=== PATIENT | female | born 1990 | race American Indian/Alaskan Native ===

== ENCOUNTER 2020-07-01 02:31 | Inpatient (IN) | payer MEDICAID ==
--- NOTE | 2020-07-01 02:39 | Emergency Department Report ---
HPI - General Time Seen by Provider: 07/01/20 02:35 - HPI HPI: Charge nurse triage The patient is a 30-year-old female present with a chief complaint of aphasia. Per EMS the patient's boyfriend noticed a change in the patient's behavior at approximately 00:30. The patient attempts to speak but no words come out. Per EMS some left-sided weakness was noted. ED Past Medical Hx - Past Medical History Hx Sickle Cell Disease: Yes - Family History Family history: no significant - Social History Smoking Status: Unknown if ever smoked Substance Use Type: None ED Review of Systems ROS: Stated complaint: CODE STROKE Other details as noted in HPI Comment: Unobtainable due to pts medical conditions Physical Exam - Physical Exam Physical Exam: GENERAL: The patient is well-developed well-nourished female lying on stretcher occasionally making eye contact and attempting to speak but no words, now. [] HEENT: Normocephalic. Atraumatic. Extraocular motions are intact. Patient has moist mucous membranes. NECK: Supple. Trachea midline CHEST/LUNGS: There is no respiratory distress noted. HEART/CARDIOVASCULAR: Regular. There is no tachycardia. ABDOMEN: There is no abdominal distention. SKIN: There is no rash. There is no edema. There is no diaphoresis. NEURO: The patient is awake and alert. The patient is cooperative. Cranial nerves II through XII grossly intact however patient will not speak. The patient forms her mouth to make words but does not not speak. When asked to move her hands and feet the patient makes minimal movements MUSCULOSKELETAL: There is no evidence of acute injury. ED Course - Consultations Consultation #1: 07/01/20 03:11 Case discussed with telemetry neurologist- no TPA. Admit for work-up ED Medical Decision Making - Lab Data Result diagrams: 07/01/20 03:00 07/01/20 03:00 Laboratory Tests 07/01/20 07/01/20 07/01/20 03:00 03:00 03:00 WBC 11.7 H RBC 4.77 Hgb 12.7 Hct 38.6 MCV 81 MCH 27 L MCHC 33 RDW 13.8 Plt Count 254 Lymph % (Auto) 23.7 [place] % (Auto) 5.5 Eos % (Auto) 0.5 Baso % (Auto) 0.8 Lymph # (Auto) 2.8 [place] # (Auto) 0.6 Eos # (Auto) 0.1 Baso # (Auto) 0.1 Seg Neutrophils % 69.5 Seg Neutrophils # 8.2 H PT 14.1 INR 1.07 APTT 33.3 Thrombin Time 17.2 Sodium 140 Potassium 4.2 Chloride 103.5 Carbon Dioxide 23 Anion Gap 18 BUN 12 Creatinine 1.0 Estimated GFR > 60 BUN/Creatinine Ratio 12 Glucose 102 H Calcium 8.6 Plasma/Serum Alcohol 07/01/20 03:00 WBC RBC Hgb Hct MCV MCH MCHC RDW Plt Count Lymph % (Auto) [place] % (Auto) Eos % (Auto) Baso % (Auto) Lymph # (Auto) [place] # (Auto) Eos # (Auto) Baso # (Auto) Seg Neutrophils % Seg Neutrophils # PT INR APTT Thrombin Time Sodium Potassium Chloride Carbon Dioxide Anion Gap BUN Creatinine Estimated GFR BUN/Creatinine Ratio Glucose Calcium Plasma/Serum Alcohol < 0.01 - EKG Data -: EKG Interpreted by Sc EKG shows normal: sinus rhythm Rate: normal - EKG Data When compared to previous EKG there are: previous EKG unavailable Interpretation: other (No ischemic changes seen) - Radiology Data Radiology results: report reviewed (CT head), image reviewed (CT head) [facility] [address] [place] [address] Cat Scan Report Signed Patient: CHARLETTE GREEN MR#: [id number] : 1990 Acct:[id number] Age/Sex: 30 / F ADM Date: 07/01/20 Loc: ED Attending Dr: Ordering Physician: BRIDGER HODGE MD Date of Service: 07/01/20 Procedure(s): CT head/brain wo con Accession Number(s): [id number] cc: BRIDGER HODGE MD CT head/brain wo con INDICATION / CLINICAL INFORMATION: 30 years Female; Aphasic. TECHNIQUE: Routine CT head without contrast. All CT scans at this location are performed using CT dose reduction for ALARA by means of automated exposure control. Study limited by patient zohra devi. COMPARISON: None. FINDINGS: BRAIN / INTRACRANIAL CONTENTS: No acute hemorrhage, mass effect, midline shift, hydrocephalus, or acute, large territorial infarct. No chronic infarct or atrophy appreciated. No significant white matter abnormality. CRANIOCERVICAL JUNCTION: No significant abnormality. ORBITS: No significant abnormality of visualized orbits. SINUSES / MASTOIDS: No significant abnormality in the visualized paranasal sinuses or mastoid air cells. ADDITIONAL FINDINGS: None. IMPRESSION: 1. No focal mass, hemorrhage, hydrocephalus, or acute, large territorial infarct. Follow-up with diffusion imaging by MRI, as clinically warranted. CODE STROKE: Exam Completed (WOOD GRINDER/CDT): 07/01/2020 1:50 AM Exam Reviewed (WOOD GRINDER/CDT): 2:07 AM Time of Communication (WOOD GRINDER/CDT): 2:09 AM Licensed Practitioner Receiving Report: Dr. Hodge Signer Name: Rajendra Soto MD, III Signed: 07/01/2020 3:10 AM Workstation Name: [id number] Transcribed By: HR Dictated By: Rajendra Soto MD Electronically Authenticated By: Rajendra Soto MD Signed Date/Time: 07/01/20309 DD/ 5 TD/TT: - Differential Diagnosis CVA, complex migraine, malingering Critical care attestation.: If time is entered above; I have spent that time in minutes in the direct care of this critically ill patient, excluding procedure time. ED Disposition Clinical Impression: Altered mental status Disposition: DC-09 OP ADMIT IP TO THIS HOSP Is pt being admited?: Yes Does the pt Need Aspirin: Yes Condition: Fair Referrals: PRIMARY CARE, [Primary Care Provider] - 3-5 Days Time of Disposition: 05:07 (Hospitalist notified Dr Jimenez))
[2020-07-01] MEDS ORDERED: BUTALB/ACETAMINOPHEN/CAFFEINE TAB PO ONE (03:11)
[2020-07-01] MEDS ORDERED: ASPIRIN 325 MG TAB PO ONE (03:11)
[2020-07-01 03:14] LABS: Basophils # (Auto) 0.1 K/mm3 (0.0-0.1); Basophils % (Auto) 0.8 % (0.0-1.8); Eosinophils # (Auto) 0.1 K/mm3 (0.0-0.4); Eosinophils % (Auto) 0.5 % (0.0-4.3); Hematocrit 38.6 % (30.3-42.9); Hemoglobin 12.7 gm/dl (10.1-14.3); Lymphocytes # (Auto) 2.8 K/mm3 (1.2-5.4); Lymphocytes % (Auto) 23.7 % (13.4-35.0); Mean Corpuscular HGB Conc 33 % (30-34); Mean Corpuscular Volume 81 fl (79-97); Monocytes # (Auto) 0.6 K/mm3 (0.0-0.8); Monocytes % (Auto) 5.5 % (0.0-7.3); Platelet Count 254 K/mm3 (140-440); Red Blood Count 4.77 M/mm3 (3.65-5.03); Red Cell Distribution Width 13.8 % (13.2-15.2)
--- NOTE | 2020-07-01 03:14 | Cat Scan Report ---
CT head/brain wo con INDICATION / CLINICAL INFORMATION: 30 years Female; Aphasic. TECHNIQUE: Routine CT head without contrast. All CT scans at this location are performed using CT dos e reduction for ALARA by means of automated exposure control. Study limited by patient positioning. COMPARISON: None. FINDINGS: BRAIN / INTRACRANIAL CONTENTS: No acute hemorrhage, mass effect, midline shift, hydrocephalus, or acu te, large territorial infarct. No chronic infarct or atrophy appreciated. No significant white matter abnormality. CRANIOCERVICAL JUNCTION: No significant abnormality. ORBITS: No significant abnormality of visualized orbits. SINUSES / MASTOIDS: No significant abnormality in the visualized paranasal sinuses or mastoid air syl ls. ADDITIONAL FINDINGS: None. IMPRESSION: 1. No focal mass, hemorrhage, hydrocephalus, or acute, large territorial infarct. Follow-up with diff usion imaging by MRI, as clinically warranted. CODE STROKE: Exam Completed (INSTRUMENTAL TEACHER/CDT): 07/01/2020 1:50 AM Exam Reviewed (INSTRUMENTAL TEACHER/CDT): 2:07 AM Time of Communication (INSTRUMENTAL TEACHER/CDT): 2:09 AM Licensed Practitioner Receiving Report: Dr. Sandoval Signer Name: Rajendra Soto MD, III Signed: 07/01/2020 3:10 AM Workstation Name: [id number]
[2020-07-01 03:21] LABS: BUN/Creatinine Ratio 12; Blood Urea Nitrogen 12 mg/dL (7-17); Calcium 8.6 mg/dL (8.4-10.2); Hemolysis Index 29
--- NOTE | 2020-07-01 03:22 | Emergency Department Report ---
ED Neuro Deficit HPI - General Chief Complaint: Altered Mental Status Stated Complaint: CODE STROKE Time Seen by Provider: 07/01/20 02:35 Source: patient, family, EMS - History of Present Illness Initial Comments: [facility] TeleStroke Metrics: LKW: 2200 Door Time: 0231 [employer] Contacted: 223 [facility] at Bedside: 230 NIHSS: 0252 Decision on Alteplase: Not to give as her last known well time is greater than 4.5 hours prior to her presentation. Interventional Candidate: Likely not a candidate as her symptoms are not consistent with a large vessel proximal occlusion. CTA head and neck are pending. Chief Complaint: Altered mental status HPI: Asked to see this patient in emergent telemedicine consultation utilizing interactive audio and video technologies. Consultation was performed with assistance of ancillary / medical staff at bedside. Verbal consent to perform the examination with telemedicine was obtained. Patient agreed to proceed with the consultation for acute stroke protocol. 30-year-old right-handed -[place] female who comes to the emergency room by EMS as a stroke alert for possible left-sided weakness, confusion, and inability to speak. Patient does not take any blood thinners or aspirin. She does not take any control pills. She has a history of sickle cell trait and migraine headaches. I eventually was able to speak with the patient's boyfriend over the phone. According to the boyfriend, the last time he saw the patient well was around 10 PM when he left their home. He then came back around 1 AM and found her with shortness of breath and she was pointing to her chest. She was struggling to talk and was generally weak. He ultimately called EMS. They reported left- sided weakness and patient not being able to talk. Her blood pressure was 128/68 and blood sugar was 113. Upon my evaluation, the patient was generally weak. She was actually able to follow commands and appeared to attempt to talk but was unable to verbalize any words. She was able to write her boyfriend's phone number down on a piece of paper, and that was how I was able to contact him. Head CT showed no acute findings. Patient was complaining of a headache as well. PMH: Sickle cell trait and migraine headaches SOC: Negative x2. Patient drinks occasional alcohol. She lives with her boyfriend of 15 years. FMH: Positive for stroke. ROS: 13 point review systems were reviewed with the patient, and are all negative with the exception of the aforementioned in the history of present illness. VS: Blood pressure 155/84, pulse 83, respiration 13 Exam: Patient is in no apparent distress. Patient appears as stated age. No obvious acute respiratory or cardiac distress. Patient is well groomed and well-nourished. 1a- LOC: Keenly responsive - 0 1b- LOC questions: Answers neither questions correctly - 2 1c- LOC commands- Performs both tasks correctly- 0 2- Gaze: Normal; no gaze paresis or gaze deviation - 0 3- Visual Marques: normal, no Visual field deficit - 0 4- Facial movements: no facial palsy - 0 5- Upper limb motor bilateral arm drifts - 2 6- Lower limb motor bilateral leg drifts - 2 7- Limb Coordination: absent ataxia - 0 8- Sensory: no sensory loss - 0 9- Language - Severe aphasia - 2 10- Speech - Severe dysarthria - 2 11- Neglect / Extinction - none found - 0 NIHSS score: 10 Diagnostic Data: CT head showed no acute intracranial hemorrhage, mass, or large territory stroke Blood glucose 113 WBC 11.7, hemoglobin 12.7, platelets 254 Medical Data Reviewed: 1.Data?reviewed include clinical labs, radiology,?and medical tests; 2.Tests?results discussed w/performing or interpreting physician; 3.Obtaining/reviewing old medical records; 4.Obtaining?case history from another source; 5.Independent?review of image, tracing, or specimen. Medical Decision Making: - Extensive number of diagnosis or management options are considered below. - Extensive amount of complex data reviewed. - High risk of complication and/or morbidity or mortality are associated with differential diagnostic considerations below. - There may be?uncertain?outcome and increased probability of prolonged functional impairment or high probability of severe prolonged functional impairment associated with some of these differential diagnosis. Differential Diagnosis for Stroke: 1.?Cardioembolic?stroke 2. Small vessel disease/lacune 3. Thromboembolic, ulbgmw-kh-[id number] mechanism 4.?Hypercoagulable?state-related infarct 5. Transient ischemic attack 6. Thrombotic mechanism, large artery disease Assessment: 1. Altered mental status 2. Sickle cell trait 3. Migraine headaches 4. Possible chest pain Recommendations: We will go ahead and check a CTA head and neck now to better evaluate her in tracranial and extracranial blood vessels Patient can be admitted to the hospital for further work-up of her symptoms Start the patient on full dose aspirin Allow permissive hypertension Consult inpatient neurology team to assist with evaluation and management Chest pain work-up per primary team Metabolic and infectious work-up per primary team Check MRI brain without contrast to rule out any acute intracranial process Check echocardiogram to gauge her cardiac function Maintain the patient on telemetry to look for paroxysmal atrial fibrillation To consider an EEG to rule out subclinical seizures if her MRI brain is negative Check hemoglobin A1c, lipid panel, and urine drug screen Consult PT, OT, and ST Continue supportive care Plan of care was cussed with the patient and her boyfriend Thank you for allowing [facility] to participate in the care of your patient. Please call me, Dr. Garcia, with any questions at [phone]. Case discussed with the ER staff and Dr. Sandoval. Critical Care notation: I was called to see this critical patient emergently. I personally evaluated t his critical patient for acute stroke evaluation, and determining their eligibility for IV Alteplase and interventional therapies. I have spent approximately 30 minutes with the patient, including time at bedside, time discussing the case with other physicians, reviewing plan of care, and time inde pendently reviewing the records and scans. ED Review of Systems ROS: Stated complaint: CODE STROKE Other details as noted in HPI ED Past Medical Hx - Past Medical History Hx Sickle Cell Disease: Yes - Social History Smoking Status: Unknown if ever smoked ED Neuro Physical Exam - General Suspected Stroke: No - Lab Data Result diagrams: 07/01/20 03:00 Lab Results 07/01/20 Range/Units 03:00 WBC 11.7 H (4.5-11.0) K/mm3 RBC 4.77 (3.65-5.03) M/mm3 Hgb 12.7 (10.1-14.3) gm/dl Hct 38.6 (30.3-42.9) % MCV 81 (79-97) fl MCH 27 L (28-32) pg MCHC 33 (30-34) % RDW 13.8 (13.2-15.2) % Plt Count 254 (140-440) K/mm3 Lymph % (Auto) 23.7 (13.4-35.0) % [place] % (Auto) 5.5 (0.0-7.3) % Eos % (Auto) 0.5 (0.0-4.3) % Baso % (Auto) 0.8 (0.0-1.8) % Lymph # (Auto) 2.8 (1.2-5.4) K/mm3 [place] # (Auto) 0.6 (0.0-0.8) K/mm3 Eos # (Auto) 0.1 (0.0-0.4) K/mm3 Baso # (Auto) 0.1 (0.0-0.1) K/mm3 Seg Neutrophils % 69.5 (40.0-70.0) % Seg Neutrophils # 8.2 H (1.8-7.7) K/mm3 Critical care attestation.: If time is entered above; I have spent that time in minutes in the direct care of this critically ill patient, excluding procedure time. ED Disposition Clinical Impression: Altered mental status Disposition: DC-09 OP ADMIT IP TO THIS HOSP Is pt being admited?: Yes Does the pt Need Aspirin: Yes Condition: Stable Referrals: PRIMARY CARE, [Primary Care Provider] - 3-5 Days
[2020-07-01 03:25] LABS: INR 1.07 (0.87-1.13)
[2020-07-01 03:26] LABS: Partial Thromboplastin Time 33.3 Sec. (24.2-36.6); Thrombin Time 17.2 Sec. (15.1-19.6)
[2020-07-01] MEDS ORDERED: PROMETHAZINE 25 MG RECT SUPP PR PRN (05:34)
[2020-07-01] MEDS ORDERED: ONDANSETRON 4 MG/2 ML INJ IV PRN ×2 (05:34)
[2020-07-01] MEDS ORDERED: METOCLOPRAMIDE 10 MG TAB PO PRN (05:34)
[2020-07-01] MEDS ORDERED: MAGNESIUM HYDROXIDE (MOM) ORAL LIQD UDC PO PRN ×2 (05:34)
[2020-07-01] MEDS ORDERED: ACETAMINOPHEN 325 MG TAB PO PRN ×2 (05:34)
[2020-07-01] MEDS ORDERED: MORPHINE 2 MG/1 ML INJ IV PRN ×2 (05:34→05:46)
--- NOTE | 2020-07-01 05:38 | Cat Scan Report ---
CT angio head INDICATION / CLINICAL INFORMATION: 30 years Female; AMS. TECHNIQUE: Thin cut axial images obtained through the head during IV bolus contrast administration. S agittal, coronal, and 3 plane MIP reconstructions performed by the technologist. NASCET type criteria used evaluate stenoses. Automated exposure control utilized for radiation reduction purposes. Study suboptimal secondary to bolus timing, low injection rate, or perhaps low cardiac output. COMPARISON: None available. FINDINGS: INTERNAL CAROTID ARTERIES: No significant narrowing appreciated. VERTEBROBASILAR SYSTEM: No significant narrowing appreciated. DISTAL BRANCHES: Distal branches of the anterior, middle, and posterior cerebral arteries are fairly symmetric in appearance and number. Note, the A1 segment on the left may be hypoplastic, when compared with the right. This finding most likely is on a congenital basis. There may be smooth like narrowing of the distal A1 segment on the l eft, however. Areas of smooth like narrowing in the right MCA territories cannot be excluded-these findings might r aise the possibility of vasculitis/arteritis. There may be mild, smooth like narrowing in the P1 segment on the right. ANEURYSM: None identified. ADDITIONAL FINDINGS: Remainder of the surrounding soft tissues are grossly normal. IMPRESSION: 1. Study is suboptimal, as described above. No dominant stenosis appreciated on this CTA of the head. As always, this constellation of exams does not exclude ischemia. Diffusion imaging by MRI may be of benefit. 2. Areas of mild, smooth like narrowing as described above - arteritis/vasculitis might be considerat ion. Signer Name: Rajendra Soto MD, III Signed: 07/01/2020 5:33 AM Workstation Name: [id number]
--- NOTE | 2020-07-01 06:02 | History and Physical Report ---
History of Present Illness Date of examination: 07/01/20 Date of admission: 07/01/20 05:08 Chief complaint: Aphasia Left-sided weakness History of present illness: 30-year-old -[place] female with no significant past medical history except sickle cell trait presenting to the emergency room today via EMS with changes in mental status for about 30 minutes. Patient was said to be aphasic and had some left-sided weakness which was noticed by boyfriend. Upon arrival in the emergency room patient became more alert, was able to have a conversation. She cannot recall events prior to arrival in the emergency room. She denies any fever or chills, no chest pain or shortness of breath, no nausea vomiting, no diarrhea, no abdominal pain, no hematuria or dysuria. Patient indicates she has had some headache but denies any dizziness. She denies any sick contacts and no recent travel, denies any contact with anyone with COVID- 19. Work-up in the emergency room so far including CT of the head, CT angiogram of the head and neck has been unremarkable. Patient was seen by the teleneurologist and she was deemed to have had possible conversion disorder or complex migraine. However patient is being worked up for possible CVA. Past History Past Medical History: other (Sickle cell trait) Past Surgical History: No surgical history Social history: no significant social history Family history: diabetes (Grandmother), other (Brother and son with history of asthma) Medications and Allergies Allergies Allergy/AdvReac Type Severity Reaction Status Date / Time No Known Allergies Allergy Unverified 07/01/20 03:39 Active Meds: Active Medications Acetaminophen (Tylenol) 650 mg PO Q4H PRN PRN Reason: Pain MILD(1-3)/Fever >100.5/VARELA Acetaminophen (Tylenol) 650 mg PO Q4H PRN PRN Reason: Pain, Mild (1-3) Aspirin (Aspirin) 325 mg PO QDAY MATHEUS Atorvastatin Calcium (Lipitor) 40 mg PO QHS MATHEUS Bisacodyl (Dulcolax) 10 mg [place] QDAY PRN PRN Reason: Constipation Magnesium Hydroxide (Milk Of Magnesia) 30 ml PO Q4H PRN PRN Reason: Constipation Magnesium Hydroxide (Milk Of Magnesia) 30 ml PO Q4H PRN PRN Reason: Constipation Metoclopramide HCl (Reglan) 10 mg PO Q6H PRN PRN Reason: Nausea And Vomiting Morphine Sulfate (Morphine) 2 mg IV Q4H PRN PRN Reason: Pain, Moderate (4-6) Morphine Sulfate (Morphine) 2 mg IV Q4H PRN PRN Reason: Pain, Moderate (4-6) Ondansetron HCl (Zofran) 4 mg IV Q8H PRN PRN Reason: Nausea And Vomiting Ondansetron HCl (Zofran) 4 mg IV Q8H PRN PRN Reason: Nausea And Vomiting Promethazine HCl (Phenergan) 25 mg [place] Q6H PRN PRN Reason: Nausea And Vomiting Sodium Chloride (Sodium Chloride Flush Syringe 10 Ml) 10 ml IV BID MATHEUS Sodium Chloride (Sodium Chloride Flush Syringe 10 Ml) 10 ml IV PRN PRN PRN Reason: LINE FLUSH Sodium Chloride (Sodium Chloride Flush Syringe 10 Ml) 10 ml INJ PRN PRN PRN Reason: LINE FLUSH Review of Systems Constitutional: no fever, no chills Ears, nose, mouth and throat: no nasal congestion, no sore throat Cardiovascular: no chest pain, no palpitations Respiratory: no cough, no shortness of breath Gastrointestinal: no abdominal pain, no nausea, no vomiting Genitourinary Female: no pelvic pain, no flank pain, no dysuria, no hematuria Musculoskeletal: no neck pain, no low back pain Integumentary: no rash, no pruritis Neurological: weakness (Left-sided), aphasia, no headaches, no confusion Exam - Constitutional Vitals: Temp Pulse Resp BP Pulse Ox 98.1 F 85 18 121/67 99 07/01/20 03:40 07/01/20 04:30 07/01/20 05:20 07/01/20 05:45 07/01/20 05:45 General appearance: Present: no acute distress, well-nourished, obese - EENT Eyes: Present: PERRL, EOM intact ENT: hearing intact, clear oral mucosa, dentition normal - Neck Neck: Present: supple, normal ROM - Respiratory Respiratory effort: normal Respiratory: bilateral: CTA - Cardiovascular Rhythm: regular Heart Sounds: Present: S1 & S2. Absent: gallop, systolic murmur, diastolic murmur, rub - Extremities Extremities: no ischemia, pulses intact, pulses symmetrical, No edema, Full ROM Peripheral Pulses: within normal limits - Abdominal General gastrointestinal: Present: soft, non-tender, non-distended, normal bowel sounds - Integumentary Integumentary: Present: clear, warm, dry - Musculoskeletal Musculoskeletal: strength equal bilaterally - Psychiatric Psychiatric: appropriate mood/affect, intact judgment & insight, memory intact, cooperative - Neurologic Neurologic: CNII-XII intact, no focal deficits, moves all extremities Results - Labs CBC & Chem 7: 07/01/20 03:00 07/01/20 03:00 Labs: Abnormal lab results 07/01/20 07/01/20 Range/Units 03:00 03:00 WBC 11.7 H (4.5-11.0) K/mm3 MCH 27 L (28-32) pg Seg Neutrophils # 8.2 H (1.8-7.7) K/mm3 Glucose 102 H (65-100) mg/dL Assessment and Plan - Patient Problems (1) Aphasia Current Visit: Yes Status: Acute Plan to address problem: Etiology is unclear. Patient is being worked up for possible CVA. She has been started on daily aspirin and statin. We will place a consult to neurology for evaluation and recommendation. We will also place a consult to speech therapy. (2) Altered mental status Current Visit: Yes Status: Acute Plan to address problem: Patient back to her baseline. Etiology of the changes in mental status unknown. We await further work-up for CVA and recommendation from neurology. (3) DVT prophylaxis Current Visit: Yes Status: Acute Plan to address problem: Patient placed on subcutaneous Lovenox. (4) Full code status Current Visit: Yes Status: Acute
--- NOTE | 2020-07-01 06:07 | Cat Scan Report ---
CT angio neck INDICATION / CLINICAL INFORMATION: 30 years Female; AMS. TECHNIQUE: Thin cut axial images obtained through the head during IV bolus contrast administration. S agittal, coronal, and 3 plane MIP reconstructions performed by the technologist. NASCET type criteria used evaluate stenoses. All CT scans at this location are performed using CT dose reduction for ALAR A by means of automated exposure control. There is decreased ecfzih-zy-pldfp ratio, which may be rela prabhakar to patient body habitus or perhaps suboptimal bolus timing. COMPARISON: None available. FINDINGS: ARCH: Bovine arch configuration noted. CAROTID ARTERIES: The visualized common and internal carotid arteries are widely patent. VERTEBRAL ARTERIES: Codominant vertebral system seen. No dominant stenosis appreciated. Its difficult to evaluate for small areas of stenosis, particularly proximally. ADDITIONAL FINDINGS: Wallace tonsils are prominent, nearly touching in midline. IMPRESSION: No definitive stenosis appreciated on this limited CTA of the neck. Signer Name: Rajendra Soto MD, III Signed: 07/01/2020 6:03 AM Workstation Name: [id number]
--- NOTE | 2020-07-01 11:19 | Event Note ---
<WENCESLAO FRITZ - Last Filed: 07/01/20 15:42> Date: 07/01/20 This is a 30-year-old Female who came to [facility] with her boyfriend. She has past medical history except sickle cell trait. She to ED with AMS and was said to be aphasic and with some left-sided weakness which was noticed by boyfriend. patient became more alert and able to have a conversation in ED. per ED note- patient denies any fever or chills, no chest pain or shortness of breath, no nausea vomiting,but reported headache but denies any dizziness. patient seen at bedside. She is awake -alert and oriented times 3. voiced clear and no sided weakness noted on assessment. Patient said she can't remember coming to the hospital. She denies hx of seizures. She said her mom and nephew have seizure disorder. Tele nuero was consulted-reviewed recommendation CT of the head, CTA of the head and neck done-negative for acute finding Per tele nuero reces-start full dose aspirin, check MRI of the brain, ECHO, EEG to rule out subclinical seizures if her MRI brain is negative hemoglobin A1c, lipid panel, and urine drug screen ordered Consult PT, OT, and ST consulted <MARQUITA SMITH - Last Filed: 07/01/20 18:57> I saw and evaluated the patient. I agree with the findings and the plan of care as documented in the Nurse Practitioner's~note.
[2020-07-01] MEDS: ASPIRIN 325 MG TAB PO SCH (11:52)
[2020-07-01 14:14] LABS: Chol/HDL Ratio 2.41 %
[2020-07-01] MEDS ORDERED: ENOXAPARIN 40 MG/0.4 ML INJ SUB-Q SCH (22:00)
[2020-07-02 06:54] LABS: Basophils % (Auto) 0.2 % (0.0-1.8); Eosinophils # (Auto) 0.1 K/mm3 (0.0-0.4); Eosinophils % (Auto) 1.1 % (0.0-4.3); Hematocrit 34.4 % (30.3-42.9); Hemoglobin 11.6 gm/dl (10.1-14.3); Lymphocytes # (Auto) 1.9 K/mm3 (1.2-5.4); Lymphocytes % (Auto) 26.6 % (13.4-35.0); Mean Corpuscular HGB Conc 34 % (30-34); Mean Corpuscular Volume 83 fl (79-97); Monocytes # (Auto) 0.6 K/mm3 (0.0-0.8); Monocytes % (Auto) 8.8 % (0.0-7.3); Platelet Count 221 K/mm3 (140-440); Red Blood Count 4.17 M/mm3 (3.65-5.03); Red Cell Distribution Width 13.6 % (13.2-15.2)
[2020-07-02 07:29] LABS: BUN/Creatinine Ratio 15; Blood Urea Nitrogen 12 mg/dL (7-17); Calcium 8.3 mg/dL (8.4-10.2); Hemolysis Index 4
[2020-07-02 08:08] VITALS: BP 107/50
[2020-07-02] MEDS: ASPIRIN 325 MG TAB PO SCH (09:09)
--- NOTE | 2020-07-02 10:31 | Discharge Summary ---
Providers - Providers Date of Admission: 07/01/20 05:08 Date of discharge: 07/02/20 Attending physician: MARQUITA SMITH 07/01/20 05:34 Occupational Therapy Evaluate and Treat [CONS] Routine Comment: Reason For Exam: Neuro deficits Physical Therapy Evaluation and Treat [CONS] Routine Comment: Reason For Exam: Neuro deficits 07/01/20 05:46 Consult to Physician [CONS] Routine Comment: Consulting Provider: MARK MARINELLI Physician Instructions: Reason For Exam: Aphasia. R/O CVA 07/01/20 11:33 Consult to Case Management [CONS] Stat Services Needed at Discharge: Physical Therapy Notified:: SW Was contact made?: Yes Time called:: 11:34 Speech Therapy Evaluation and Treat [CONS] Stat Reason For Exam: aphasia Primary care physician: SENIOR PHP DEVELOPER Hospitalization Condition: Stable Hospital course: The patient is a 30-year-old female present with a chief complaint of aphasia. Per EMS the patient's boyfriend noticed a change in the patient's behavior at approximately 00:30. The patient attempts to speak but no words come out. Per EMS some left-sided weakness was noted Assessment and Plan (1) Acute metabolic encephalograph unknown cause-has resolved has resolved-patient reports she did not know when she was brought to the hospital likely 2/2 to TIA/Seizure-patient denies hx of seizures (2) Aphasia-resolved Etiology is unclear. Patient worked up for possible CVA. Started on daily aspirin and statin. neurology consulted for evaluation and recommendation. Pt/OT and speech consulted. (3) Altered mental status-resolved Patient back to her baseline. Etiology of the changes in mental status unknown. CT of the head -negative CT of the neck-negative for stenosis Patient seen at bedside. At discharge assessment, patient alert and oriented times 3. She denies any body weakness or any distress patient advised to follow with PCP and to return to ED with worsening symptoms. MRI and EEG ordered-No done Patient advised to f/u with neurologist/PCP for out patient MRI and possible EEG Patient d/c on asa and statin Disposition: DC-01 TO HOME OR SELFCARE Core Measure Documentation - Palliative Care Palliative Care/ Comfort Measures: Not Applicable - Core Measures Any of the following diagnoses?: none Exam - Constitutional Vitals: Temp Pulse Resp BP Pulse Ox 97.8 F 85 18 107/50 98 07/02/20 07:49 07/02/20 07:49 07/02/20 07:49 07/02/20 07:49 07/02/20 07:49 General appearance: Present: obese - EENT Eyes: Present: PERRL ENT: hearing intact, clear oral mucosa - Neck Neck: Present: supple, normal ROM - Respiratory Respiratory effort: normal Respiratory: bilateral: CTA - Cardiovascular Heart Sounds: Present: S1 & S2. Absent: rub, click - Extremities Extremities: pulses symmetrical, No edema Peripheral Pulses: within normal limits - Abdominal General gastrointestinal: Present: soft, non-tender, non-distended, normal bowel sounds Female genitourinary: Present: normal - Integumentary Integumentary: Present: clear, warm, dry - Musculoskeletal Musculoskeletal: gait normal, strength equal bilaterally - Psychiatric Psychiatric: appropriate mood/affect, intact judgment & insight - Neurologic Neurologic: CNII-XII intact, moves all extremities Plan Activity: advance as tolerated Diet: low fat, low cholesterol, low carbohydrate Follow up with: PRIMARY CARE, [Primary Care Provider] - 3-5 Days
[2020-07-02] MEDS ORDERED: ASPIRIN EC 81 MG TAB PO SCH ×2 (15:00)
--- NOTE | 2020-07-03 08:40 | Magnetic Resonance Report ---
MRI BRAIN 07/02/2020 INDICATION / CLINICAL INFORMATION: APAHSIA R/O CVA. TECHNIQUE: Multiplanar, multisequence MR images of the brain were obtained. COMPARISON: CT brain 07/01/2020 FINDINGS: BRAIN / INTRACRANIAL CONTENTS: Unenhanced MR images of the brain demonstrates no evidence of acute in tracranial abnormality. Ventricles and sulci are normal in size and shape. There is no evidence of ischemic injury, demyelination, hemorrhage, or mass. There are no abnormal ex tra-axial fluid collections. EXTRACRANIAL: Unremarkable CRANIOCERVICAL JUNCTION: No significant abnormality. VASCULAR FLOW-VOIDS: No significant abnormality. IMPRESSION: Negative unenhanced MRI of the brain. Signer Name: Anselmo Bey MD Signed: 07/03/2020 8:35 AM Workstation Name: [email or web address]
[2020-07-03] MEDS ORDERED: ASPIRIN 81 MG TAB CHEW PO SCH (10:00)
--- NOTE | 2020-07-03 12:20 | Consultation ---
History of Present Illness Consult date: 07/03/20 Past History Past Medical History: other (Sickle cell trait) Past Surgical History: No surgical history Social history: no significant social history Family history: diabetes (Grandmother), other (Brother and son with history of asthma) Medications and Allergies Allergies Allergy/AdvReac Type Severity Reaction Status Date / Time No Known Allergies Allergy Unverified 07/01/20 03:39 Home Medications Medication Instructions Recorded Confirmed Last Taken Type Aspirin 81 mg PO QDAY 30 Days #30 tablet 07/02/20 Unknown Rx Aspirin EC [Halfprin EC] 81 mg PO QDAY 30 Days #30 tablet 07/02/20 Unknown Rx AtorvaSTATin [Lipitor] 40 mg PO QHS 30 Days #30 tablet 07/02/20 Unknown Rx Physical Examination - Vital Signs Vital Signs: Vital Signs Pulse Resp BP Pulse Ox 90 16 155/84 98 07/01/20 03:00 07/01/20 03:00 07/01/20 03:00 07/01/20 03:00 Results - Laboratory Findings CBC and BMP: 07/02/20 05:50 07/02/20 05:50 Abnormal Lab Findings: Abnormal Labs 07/01/20 07/01/20 07/02/20 03:00 03:00 05:50 WBC 11.7 H MCH 27 L [place] % (Auto) 8.8 H Seg Neutrophils # 8.2 H Glucose 102 H Calcium 07/02/20 05:50 WBC MCH [place] % (Auto) Seg Neutrophils # Glucose 103 H Calcium 8.3 L
== END 2020-07-02 19:48 | disposition home health service (06) | DRG 71 ==
LOC: ED 02:31 → 4A 05:08
PROVIDERS: ADMIT Internal Medicine Geriatric Medicine; ATTEND Internal Medicine
DX: G93.41 Metabolic encephalopathy (principal); G45.9 Transient cerebral ischemic attack, unspecified; R56.9 Unspecified convulsions; D57.3 Sickle-cell trait; G43.909 Migraine, unspecified, not intractable, without status migrainosus; Z83.3 Family history of diabetes mellitus; Z82.5 Family history of asthma and other chronic lower respiratory diseases
CPT/HCPCS: 36415; 70450; 70496; 70498; 70551; 80048; 80061; 80320; 85025; 85610; 85670; 85730; 93005; 93306; G0378; A9270-GY; G0480; J1650; Q9967